=== PATIENT | male | born 1970 | race Hispanic/Latino ===

== ENCOUNTER 2017-11-25 18:59 | Emergency (ER) | payer MEDICARE ==
[~2017-11-25 18:59] MED LIST: ACET-66 PO; ALOE VERA GEL TP; BENADRYL CREAM TP; CARMEX TP; CHLORASEPTIC SPRAY PO; DIPH25 PO; DIVA250T4 PO; DOCU100C33 PO; DOXE3TAB3 PO; HC1C1.5 TP; IBUP-2353 PO; LOTRIMIN TP; MOM30 PO; MYLANTA PO; PEPTO BISMOL PO; ROBITUSSIN PO; VITAMIN A&D OINT TP; [UNRECOGNIZED DRUG - OTHER] AU
[2017-11-25] MEDS ORDERED: OCTYL 2-CYANOACRYLATE 1 EACH TP ONE (19:52)
== END 2017-11-25 20:09 | disposition home or self-care (01) ==
LOC: EDH 18:59
DX: S01.112A Laceration without foreign body of left eyelid and periocular area, initial encounter (principal); Z88.0 Allergy status to penicillin; Z88.6 Allergy status to analgesic agent; W18.39XA Other fall on same level, initial encounter; Y93.89 Activity, other specified; Y92.098 Other place in other non-institutional residence as the place of occurrence of the external cause; Y99.8 Other external cause status
CPT/HCPCS: 12011

== ENCOUNTER → 2019-01-23 | Outpatient (CLI) | payer MEDICARE | END | disposition home or self-care (01) | LOC: RAH 08:39 | PROVIDERS: ATTEND Family Medicine | DX: K80.20 Calculus of gallbladder without cholecystitis without obstruction (principal) | CPT/HCPCS: 76700 ==

== ENCOUNTER → 2019-02-15 | Outpatient (CLI) | payer MEDICARE | END | disposition home or self-care (01) | LOC: RAH 13:06 | PROVIDERS: ATTEND Psychiatry & Neurology Neurology | DX: R56.9 Unspecified convulsions (principal) | CPT/HCPCS: 70450 ==

== ENCOUNTER → 2020-11-24 | Outpatient (CLI) | payer MEDICARE ==
[~2020-11-24] MED LIST changes: +DIATR MEGLU/DIATRIZOATE SODIUM 30 ML BOTTLE ONE; -IBUP-2353 PO; +IBUP-2784 PO
== END | disposition home or self-care (01) ==
LOC: RAH 10:31
PROVIDERS: ATTEND Internal Medicine Gastroenterology
DX: Z46.59 Encounter for fitting and adjustment of other gastrointestinal appliance and device (principal)
CPT/HCPCS: 74018; Q9963

== ENCOUNTER → 2021-05-10 | Outpatient (CLI) | payer MEDICARE | END | disposition home or self-care (01) | LOC: RAH 14:45 | PROVIDERS: ATTEND Internal Medicine Gastroenterology | DX: Z43.1 Encounter for attention to gastrostomy (principal) | CPT/HCPCS: 74018; Q9963 ==

== ENCOUNTER 2021-07-14 07:46 | Day surgery (SDC) | payer MEDICARE, OTHER ==
[~2021-07-14 07:46] MED LIST changes: -DIATR MEGLU/DIATRIZOATE SODIUM 30 ML BOTTLE ONE; +FLUD0.1T2 PO; +LACT10SO5 PO; +MIDO10TA PO; +MIRT-22 PO; +RISP0.5T61 PO; +VALP250S4 PO
[2021-07-14] MEDS ORDERED: VALPROATE SOD 250 MG/5 ML (PO) PEG SCH (12:10)
[2021-07-14] MEDS ORDERED: IODIXANOL 320 MG/ML 100 ML VIAL ONE (14:24)
[2021-07-14] MEDS ORDERED: LIDOCAINE HCL 1% MDV 50ML VIAL ONE (14:24)
== END 2021-07-14 16:18 | disposition home or self-care (01) ==
LOC: DAH 07:46 → MERGE 07:46 → DAH 16:18
PROVIDERS: ATTEND Internal Medicine
DX: K80.10 Calculus of gallbladder with chronic cholecystitis without obstruction (principal); I10 Essential (primary) hypertension; E78.5 Hyperlipidemia, unspecified; Z79.01 Long term (current) use of anticoagulants; Z79.899 Other long term (current) drug therapy
CPT/HCPCS: 47536; 82948; A4222; A4223; A4663; C1729 ×2; C1769; J1644; J3490; Q9967

== ENCOUNTER 2021-07-27 08:20 | Day surgery (SDC) | payer MEDICARE ==
[~2021-07-27 08:20] MED LIST changes: -FLUD0.1T2 PO; -LACT10SO5 PO; -MIDO10TA PO; -MIRT-22 PO; -RISP0.5T61 PO; -VALP250S4 PO
[2021-07-27] MEDS ORDERED: LIDOCAINE HCL 1% MDV 50ML VIAL ONE (10:47)
[2021-07-27] MEDS ORDERED: IODIXANOL 320 MG/ML 100 ML VIAL ONE (10:47)
[2021-07-27 12:15] VITALS: BP 128/70
[2021-07-27 12:30] VITALS: BP 123/69
[2021-07-27 12:45] VITALS: BP 122/69
[2021-07-27 13:15] VITALS: BP 122/69
[2021-07-27] MEDS ORDERED: 0.9%NACL 1000ML 1,000 ML IV ONE (13:50)
== END 2021-07-27 13:40 | disposition home or self-care (01) ==
LOC: DAH 08:20 → CLH 08:20
PROVIDERS: ATTEND Internal Medicine
DX: R65.21 Severe sepsis with septic shock (principal); K81.0 Acute cholecystitis; I10 Essential (primary) hypertension; E78.5 Hyperlipidemia, unspecified; J96.00 Acute respiratory failure, unspecified whether with hypoxia or hypercapnia; Z79.899 Other long term (current) drug therapy; Z79.01 Long term (current) use of anticoagulants; Z88.8 Allergy status to other drugs, medicaments and biological substances; Z88.0 Allergy status to penicillin
CPT/HCPCS: 47536; C1729; C1769; J1644; J3490; J7030; Q9967

== ENCOUNTER → 2022-05-19 | Outpatient (CLI) | payer MEDICARE ==
[~2022-05-19] MED LIST changes: +FLUD0.1T2 PO; +LACT10SO5 PO; +MIDO10TA PO; +MIRT-22 PO; +RISP0.5T61 PO; +VALP250S4 PO
== END | disposition home or self-care (01) ==
LOC: RAH 10:07
PROVIDERS: ATTEND Internal Medicine Gastroenterology
DX: R93.2 Abnormal findings on diagnostic imaging of liver and biliary tract (principal)
CPT/HCPCS: 74181

== ENCOUNTER 2022-07-15 20:38 | Emergency (ER) | payer MEDICARE ==
[2022-07-15] MEDS ORDERED: DIATR MEGLU/DIATRIZOATE SODIUM 30 ML BOTTLE ONE (21:13)
[2022-07-16 00:38] VITALS: BP 99/79
== END 2022-07-16 02:39 | disposition short-term general hospital (02) ==
LOC: EDH 20:38
DX: K94.23 Gastrostomy malfunction (principal); K21.9 Gastro-esophageal reflux disease without esophagitis; F20.9 Schizophrenia, unspecified; Z88.0 Allergy status to penicillin; Z88.6 Allergy status to analgesic agent; Z79.899 Other long term (current) drug therapy
CPT/HCPCS: 99285; 43762; 74018; Q9963

== ENCOUNTER 2022-10-05 04:08 | Emergency (ER) | payer MEDICARE ==
[~2022-10-05 04:08] MED LIST changes: +DIPH-1242 PO; -DIPH25 PO
[2022-10-05 04:10] VITALS: BP 124/76
[2022-10-05] MEDS ORDERED: LIDOCAINE HCL 2% VISCOUS 15 ML UDCUP ONE (04:34)
[2022-10-05] MEDS ORDERED: DIATR MEGLU/DIATRIZOATE SODIUM 30 ML BOTTLE ONE (05:05)
== END 2022-10-05 06:09 | disposition home or self-care (01) ==
LOC: EDH 04:08
DX: K94.23 Gastrostomy malfunction (principal); K21.9 Gastro-esophageal reflux disease without esophagitis; Z79.1 Long term (current) use of non-steroidal anti-inflammatories (NSAID); Z79.899 Other long term (current) drug therapy; Z88.0 Allergy status to penicillin; Z88.6 Allergy status to analgesic agent
CPT/HCPCS: 99283; 74018; Q9963

== ENCOUNTER 2022-10-30 23:22 | Emergency (ER) | payer MEDICARE ==
[2022-10-30] MEDS ORDERED: DIATR MEGLU/DIATRIZOATE SODIUM 30 ML BOTTLE ONE (23:49)
[2022-10-31 01:30] VITALS: BP 99/49
== END 2022-10-31 01:30 | disposition home or self-care (01) ==
LOC: EDH 23:22
DX: K94.23 Gastrostomy malfunction (principal); F20.9 Schizophrenia, unspecified; G80.8 Other cerebral palsy; Z79.899 Other long term (current) drug therapy; Z88.0 Allergy status to penicillin; Z88.6 Allergy status to analgesic agent; Z98.890 Other specified postprocedural states
CPT/HCPCS: 99284; 43762; 74018; Q9963

== ENCOUNTER 2023-03-21 21:36 | Observation (INO) | payer MEDICARE ==
[~2023-03-21] VITALS: Ht 165.1 cm; Wt 67.3 kg
[2023-03-21 22:10] LABS: BASOPHILS % (AUTO) 0.9 % (0.0-5.0); EOSINOPHILS % (AUTO) 3.3 % (0.0-8.0); HEMATOCRIT 44.8 % (42-54); LYMPHOCYTES % (AUTO) 46.1 % (21.0-51.0); MEAN CORPUSCULAR HEMOGLOBIN 30.6 pg (27.0-33.0); MEAN CORPUSCULAR HGB CONC 32.8 g/dL (32.0-36.0); MEAN CORPUSCULAR VOLUME 93.3 fL (79-99); MONOCYTES % (AUTO) 13.4 % (3.0-13.0); PLATELET COUNT (AUTO) 170 K/uL (130-400); RED CELL DISTRIBUTION WIDTH 12.7 % (11.0-15.5); WHITE BLOOD COUNT (AUTO) 7.5 K/uL (4.8-10.8)
[2023-03-21 22:21] LABS: CREATININE 0.7 mg/dL (0.5-1.5)
[2023-03-21 22:35] LABS: ALBUMIN 3.7 g/dL (3.5-5.0); TOTAL PROTEIN, SERUM 8.1 g/dL (6.0-8.3)
[2023-03-21 22:52] LABS: APPEARANCE,URINE CLEAR (CLEAR); BILIRUBIN,URINE NEGATIVE (NEGATIVE); COLOR,URINE LIGHT-YELLOW (YELLOW); GLUCOSE, URINE (UA) NEGATIVE (NEGATIVE); KETONES,URINE NEGATIVE (NEGATIVE); LEUKOCYTE ESTERASE ,URINE NEGATIVE Leu/uL (NEGATIVE); NITRATE,URINE NEGATIVE (NEGATIVE); OCCULT BLOOD,URINE NEGATIVE (NEGATIVE); PH,URINE 8.5 (5.0-8.0); PROTEIN,URINE 30 mg/dL (NEGATIVE); UROBILINOGEN,URINE 0.2 mg/dL (0.2-1.0)
[2023-03-22] VITALS (13 sets, daily range): BP systolic 93–147; BP diastolic 60–118
[2023-03-22] MEDS ORDERED: MORPHINE 2 MG SYG IVP ONE
[2023-03-22] MEDS ORDERED: ONDANSETRON 4MG INJ IVP ONE
[2023-03-22] MEDS ORDERED: 0.9%NACL 1000ML 1,000 ML IV ONE
[2023-03-22] MEDS ORDERED: NITROGLYCERIN 0.4 MG SL TAB SL PRN (02:00)
[2023-03-22] MEDS ORDERED: ONDANSETRON 4MG INJ IV PRN (02:00)
[2023-03-22] MEDS: 0.9%NACL 1000ML 1,000 ML IV SCH ×2 (03:00→14:54)
[2023-03-22 06:42] LABS: BASOPHILS % (AUTO) 0.6 % (0.0-5.0); EOSINOPHILS % (AUTO) 2.5 % (0.0-8.0); HEMATOCRIT 40.8 % (42-54); LYMPHOCYTES % (AUTO) 38.3 % (21.0-51.0); MEAN CORPUSCULAR HEMOGLOBIN 30.7 pg (27.0-33.0); MEAN CORPUSCULAR HGB CONC 32.8 g/dL (32.0-36.0); MEAN CORPUSCULAR VOLUME 93.4 fL (79-99); MONOCYTES % (AUTO) 14.3 % (3.0-13.0); PLATELET COUNT (AUTO) 162 K/uL (130-400); RED BLOOD CELL COUNT(AUTO) 4.37 MIL/uL (4.50-6.20); RED CELL DISTRIBUTION WIDTH 12.8 % (11.0-15.5); WHITE BLOOD COUNT (AUTO) 9.4 K/uL (4.8-10.8)
[2023-03-22 06:54] LABS: PROTHROMBIN TIME 10.9 SEC (9.6-11.6)
[2023-03-22 06:55] LABS: PARTIAL THROMBOPLASTIN TIME 29.2 SEC (26.3-35.5)
[2023-03-22 07:05] LABS: ALBUMIN 3.3 g/dL (3.5-5.0); CREATININE 0.6 mg/dL (0.5-1.5); MAGNESIUM 1.9 mg/dL (1.80-2.40); POTASSIUM 3.7 mmol/L (3.5-5.1); TOTAL PROTEIN, SERUM 7.1 g/dL (6.0-8.3)
[2023-03-22] MEDS: FAMOTIDINE 20MG VIAL IV SCH ×2 (09:27→20:50)
[2023-03-22] MEDS ORDERED: LIDOCAINE HCL 1% MDV 50ML VIAL ONE (15:18)
[2023-03-22] MEDS ORDERED: IODIXANOL 320 MG/ML 100 ML VIAL ONE (15:18)
[2023-03-22] MEDS ORDERED: LACTULOSE 20 GM/30 ML UDCUP PO ONE (18:00)
[2023-03-22] MEDS ORDERED: LACTULOSE 20 GM/30 ML UDCUP PEG SCH (18:30)
[2023-03-22] MEDS ORDERED: SERT50TA PO (19:52)
[2023-03-22] MEDS ORDERED: NITR0.4T SL (19:52)
[2023-03-22] MEDS ORDERED: LACT10SO85 PO (19:52)
[2023-03-22] MEDS ORDERED: FAMO10VI IV (19:52)
[2023-03-22] MEDS ORDERED: VITA113O4 TP (19:52)
[2023-03-22] MEDS ORDERED: BUSP10TA3 PO (19:52)
[2023-03-22] MEDS ORDERED: SIME80TA12 PO (19:52)
[2023-03-22] MEDS ORDERED: GUAI100S13 PO (19:52)
[2023-03-22] MEDS ORDERED: FLUD0.1T2 PO (19:52)
[2023-03-22] MEDS ORDERED: APIX5TAB PO (19:52)
[2023-03-22] MEDS ORDERED: DIPH25TA51 PO (19:52)
[2023-03-22] MEDS ORDERED: TRAZ-185 PO (19:52)
[2023-03-22] MEDS ORDERED: MIDO5TAB4 PO (19:52)
[2023-03-22] MEDS ORDERED: DEXT1DRO OU (19:52)
[2023-03-22] MEDS ORDERED: VALP500S PO (19:52)
[2023-03-22] MEDS ORDERED: MULT-1203 PO (19:52)
[2023-03-22] MEDS ORDERED: [UNRECOGNIZED DRUG - CODE] IV (19:52)
[2023-03-22] MEDS ORDERED: POLY17PO4 PO (19:52)
[2023-03-22] MEDS ORDERED: HC2530O TP (19:52)
[2023-03-23 04:00] VITALS: BP 120/70
[2023-03-23] MEDS: 0.9%NACL 1000ML 1,000 ML IV SCH (04:40)
[2023-03-23 07:55] VITALS: BP 141/66
[2023-03-23] MEDS ORDERED: DOCUSATE SODIUM 100 MG CAP PO SCH (08:00)
[2023-03-23] MEDS ORDERED: MIDODRINE HCL 5 MG TABLET PO PRN (08:00)
[2023-03-23] MEDS ORDERED: SERTRALINE HCL 50 MG TABLET PO PRN (08:00)
[2023-03-23] MEDS ORDERED: LACTULOSE 20 GM/30 ML UDCUP PO PRN (08:00)
[2023-03-23] MEDS ORDERED: ARTIFICAL TEARS SOL 15 ML OU PRN (09:00)
[2023-03-23] MEDS ORDERED: APIXABAN 5 MG TABLET PO SCH (09:00)
[2023-03-23] MEDS ORDERED: POLYETHYLENE GLYCOL 3350 17 GM POWD.PACK PO SCH (09:00)
[2023-03-23] MEDS: BUSPIRONE HCL 5 MG TABLET PO SCH ×2 (09:00→15:19)
[2023-03-23] MEDS: SIMETHICONE 80 MG TAB.CHEW PO SCH ×2 (11:13→15:18)
[2023-03-23 12:00] VITALS: BP 117/69
[2023-03-23] MEDS ORDERED: VALPROATE SOD 250 MG/5 ML (PO) PO SCH (14:00)
[2023-03-23] MEDS: FAMOTIDINE 20MG VIAL IV SCH (15:18)
[2023-03-23] MEDS ORDERED: TRAZODONE HCL 50 MG TAB PO SCH (21:00)
== END 2023-03-23 16:15 ==
LOC: EDH 21:36 → EDHIP 03-22 01:39 → 4AH 03-22 05:59
PROVIDERS: ADMIT Hospitalist; ATTEND Hospitalist
DX: K94.23 Gastrostomy malfunction (principal); Z20.822 Contact with and (suspected) exposure to COVID-19; K59.00 Constipation, unspecified; G80.9 Cerebral palsy, unspecified; R41.841 Cognitive communication deficit; K21.9 Gastro-esophageal reflux disease without esophagitis; G40.909 Epilepsy, unspecified, not intractable, without status epilepticus; F41.9 Anxiety disorder, unspecified; F25.9 Schizoaffective disorder, unspecified; R13.10 Dysphagia, unspecified; E78.5 Hyperlipidemia, unspecified; I05.9 Rheumatic mitral valve disease, unspecified; M41.9 Scoliosis, unspecified; F79 Unspecified intellectual disabilities; Z90.49 Acquired absence of other specified parts of digestive tract; Z79.899 Other long term (current) drug therapy; Z98.890 Other specified postprocedural states
CPT/HCPCS: 84484 ×2; 80053 ×2; 83690; 85025 ×2; 83605; 81003; 36415 ×2; 71045; 74176; 93005 ×3; 49450; 96374; 96376 ×2; 96361; 96375; 99285; 82550; 83735; 83874; 85610; 85730; 87635; B4087; C1894; G0378 ×37; J3490 ×4; J2270; J7030; J2405; J1644; Q9967

== ENCOUNTER 2023-05-12 13:28 | Emergency (ER) | payer MEDICARE ==
[~2023-05-12] VITALS: Ht 177.8 cm; Wt 72.6 kg
[~2023-05-12 13:28] MED LIST changes: -ACET-66 PO; -ALOE VERA GEL TP; +APIX5TAB PO; -BENADRYL CREAM TP; +BUSP10TA3 PO; -CARMEX TP; -CHLORASEPTIC SPRAY PO; +DEXT1DRO OU; -DIPH-1242 PO; +DIPH25TA51 PO; -DIVA250T4 PO; -DOCU100C33 PO; -DOXE3TAB3 PO; +FAMO10VI IV; +GUAI100S13 PO; -HC1C1.5 TP; +HC2530O TP; -IBUP-2784 PO; -LACT10SO5 PO; +LACT10SO85 PO; -LOTRIMIN TP; -MIDO10TA PO; +MIDO5TAB4 PO; -MIRT-22 PO; -MOM30 PO; +MULT-1203 PO; -MYLANTA PO; +NITR0.4T SL; -PEPTO BISMOL PO; +POLY17PO4 PO; -RISP0.5T61 PO; -ROBITUSSIN PO; +SERT50TA PO; +SIME80TA12 PO; +TRAZ-185 PO; -VALP250S4 PO; +VALP500S PO; +VITA113O4 TP; -VITAMIN A&D OINT TP; +[UNRECOGNIZED DRUG - CODE] IV; -[UNRECOGNIZED DRUG - OTHER] AU
[2023-05-12 13:58] LABS: HEMATOCRIT 46.4 % (42-54); MEAN CORPUSCULAR HEMOGLOBIN 30.7 pg (27.0-33.0); MEAN CORPUSCULAR HGB CONC 32.8 g/dL (32.0-36.0); MEAN CORPUSCULAR VOLUME 93.7 fL (79-99); RED BLOOD CELL COUNT(AUTO) 4.95 MIL/uL (4.50-6.20); RED CELL DISTRIBUTION WIDTH 12.9 % (11.0-15.5)
[2023-05-12] MEDS ORDERED: 0.9%NACL 1000ML 1,000 ML IV ONE (14:00)
[2023-05-12] MEDS ORDERED: PROMETHAZINE HCL 25 MG/ML 1ML AMPULE IM ONE (14:00)
[2023-05-12 14:08] LABS: CREATININE 0.8 mg/dL (0.5-1.5); POTASSIUM 3.9 mmol/L (3.5-5.1)
[2023-05-12 14:13] LABS: ALBUMIN 3.5 g/dL (3.5-5.0); BILIRUBIN,TOTAL 0.5 mg/dL (0.2-1.0); TOTAL PROTEIN, SERUM 8.3 g/dL (6.0-8.3)
[2023-05-12 14:34] LABS: SARS-CoV-2, RNA, NAAT POSITIVE SARS CoV-2 (NEGATIVE)
[2023-05-12] MEDS ORDERED: PANT40TA54 PO (18:18)
[2023-05-12 19:54] VITALS: BP 115/62; PULSE 74; RESP 16; O2SAT 98
== END 2023-05-12 18:30 | disposition home or self-care (01) ==
LOC: EDH 13:28
DX: U07.1 COVID-19 (principal); E86.0 Dehydration; R05.9 Cough, unspecified; F20.9 Schizophrenia, unspecified; F41.9 Anxiety disorder, unspecified; K21.9 Gastro-esophageal reflux disease without esophagitis; Z79.01 Long term (current) use of anticoagulants; Z79.899 Other long term (current) drug therapy; Z88.0 Allergy status to penicillin; Z88.6 Allergy status to analgesic agent
CPT/HCPCS: 99285; 96360; 71045; 96361; 87635; 80053; 85027; 36415; 93005; 96372; C9803; J7030; J2550